=== PATIENT | female | born 1970 | race Hispanic/Latino ===

== ENCOUNTER 2024-08-20 14:03 | Emergency (ER) | payer BC ==
[~2024-08-20] VITALS: Ht 154.9 cm; Wt 68.0 kg
--- NOTE | 2024-08-20 14:34 | ERN ---
ED Note History of Present Illness Stated Complaint: SHORTNESS OF BREATH Chief Complaint: Shortness of Breath Time Seen by MD: 14:10 Dictation: Patient is a 54-year-old female who has a ventral hernia pending to be repaired she states. Today patient call EMS due to severe abdominal pain, states that it is associated with shortness of breaths. Patient said that she has not eating in the last for 5 days due to pain and nausea. Allergies: Coded Allergies: No Known Drug Allergies (Unverified Allergy, Unknown, 08/20/24) Past Medical History Past Medical History: Other Additional Past Medical Hx: BRONCHIOLITIS, ABD HERNIA, OBESE Surgical History: Other Surgical History Other: DIAPHRAM SURGERY, ABD HERNIA SX Review of System Dictation NEGATIVE EXCEPT PER HPI Constitutional: Negative for fever,chills, and weight loss Eyes: Negative for injury, pain,redness, and discharge ENT: Negative for injury,pain or swelling Cardiovascular: denies chest pain, palpitations, and edema Respiratory: Negative for shortness of breath, cough, and wheezing, Abdomen/GI: Abdominal pain. History of hernia. Back: Negative for injury and pain : Negative for injury, bleeding and discharge MS/Extremity: Negative for injury and deformity Skin: Negative for rash, and discoloration Neuro: Negative for headache, weakness, numbness, tingling, and seizure Psych: Negative for suicide ideation, homicidal ideation, and hallucinations Initial Vital Sign VS Vital Signs Date Time Temp Pulse Resp B/P (MAP) Pulse Ox O2 Delivery O2 Flow Rate FiO2 08/20/24 14:06 98.2 99 19 148/90 98 Room Air 0 08/20/24 15:05 21 Physical Exam Dictation General: awake, alert, NAD Head/Face: Normocephalic, atraumatic Eyes: PERRL, EOMI, vision at baseline ENT: oral cavity clear, TMs clear, no signs of infection Neck: Trachea midline, supple, no nuchal rigidity Cardiovascular: RRR, normal S1/S2, No MRGs, no JVD Respiratory: CTAB, no respiratory distress, No rales or wheezes Abdomen: Soft , no tender Skin: Warm, dry, normal turgor, no rash MS/Extremity: Pulses equal, no cyanosis, neurovascular intact, FROM Neuro: COAx4, GCS 15, strength 5/5, CN 2-12 intact, normal cerebellar exam, normal gait, Psych: Normal behavior, mood, and affect normal Results (Laboratory/Radiology) Laboratory/Radiology Laboratory Tests Test 08/20/24 15:19 White Blood Count 10.0 K/uL (4.8-10.8) Red Blood Count 2.35 MIL/uL (4.00-5.50) L Hemoglobin 7.6 g/dL (12.0-16.0) L Hematocrit 23.4 % (36-48) L Mean Corpuscular Volume 99.6 fL (79-99) H Mean Corpuscular Hemoglobin 32.3 pg (27.0-33.0) Mean Corpuscular Hemoglobin Concent 32.5 g/dL (32.0-36.0) Red Cell Distribution Width 25.2 % (11.0-15.5) H Platelet Count 200 K/uL (130-400) Mean Platelet Volume 10.0 fL (7.5-10.5) Immature Granulocyte % (Auto) 0.8 % (0-1) Neutrophils (%) (Auto) 76.1 % (40.0-77.0) Lymphocytes (%) (Auto) 12.6 % (21.0-51.0) L Monocytes (%) (Auto) 8.8 % (3.0-13.0) Eosinophils (%) (Auto) 1.1 % (0.0-8.0) Basophils (%) (Auto) 0.6 % (0.0-5.0) Neutrophils # (Auto) 7.6 K/uL (1.8-7.7) Lymphocytes # (Auto) 1.3 K/uL (1.0-4.8) Monocytes # (Auto) 0.9 K/uL (0.1-1.0) Eosinophils # (Auto) 0.11 K/uL (0.00-0.70) Basophils # (Auto) 0.06 K/uL (0.00-0.20) Absolute Immature Granulocyte (auto 0.08 K/uL (0-1) Nucleated Red Blood Cells 0.0 % (0.0-0.19) Red Blood Cell Morphology See comments Sodium Level 134 mmol/L (136-145) L Potassium Level 3.4 mmol/L (3.5-5.1) L Chloride Level 99 mmol/L (101-111) L Carbon Dioxide Level 28 mmol/L (21-32) Blood Urea Nitrogen 10 mg/dL (7-18) Creatinine 1.6 mg/dL (0.5-1.0) H Glomerular Filtration Rate Calc 38 mL/min (>90) Random Glucose 93 mg/dL (70-105) Total Calcium 8.3 mg/dL (8.5-10.1) L Amylase Level 38 U/L (25-115) Lipase 21 U/L (16-77) ED Course ED Course Orders Procedure Category Date Status Time Cbc With Differential LAB 08/20/24 Complete 14:18 Basic Metabolic Panel LAB 08/20/24 Complete 14:18 Amylase LAB 08/20/24 Complete 14:18 Ct Abdomen/Pelvis W/O CT 08/20/24 Resulted Contrast 14:18 Lipase LAB 08/20/24 Complete 14:18 Morphine 4mg Syg PHA 08/20/24 Complete (Morphine 4mg Syg) 14:30 Current Medications Medications (Trade) Dose Ordered Sig/Spencer Route PRN Reason Start Time Stop Time Status Last Admin Dose Admin Morphine Sulfate (morPHINE 4MG SYG) 4 mg ONCE ONCE IVP 08/20/24 14:30 08/20/24 14:31 DC 08/20/24 15:22 Vital Signs Date Time Temp Pulse Resp B/P (MAP) Pulse Ox O2 Delivery O2 Flow Rate FiO2 08/20/24 15:05 98.2 99 19 148/90 98 Room Air* 0 21 08/20/24 14:06 98.2 99 19 148/90 98 Room Air 0 Medical Decision Making MDM 54-year-old female with a large ventral hernia complaining of abdominal pain. Severe abdominal pain CBC, BNP, lipase amylase Order CT without contrast of abdomen. Morphine [address] abdomen IMPRESSION: Severe anterior abdominal wall rectus diastases includes several small to medium-sized fat and small as well as large bowel loop-containing hernias near the level of the umbilicus on the right greater than left without any significant surrounding inflammatory changes or free fluid. Hepatic steatosis. Patient has no leukocytosis no fever. Laboratory was within normal limits. Plan is to discharge patient home with the recommended to follow up with the primary care physician and referral to surgeon as outpatient. DX & DISP Disposition: Discharge Departure Impression: Primary Impression: Abdominal pain Additional Impressions: Ventral hernia without obstruction or gangrene, Small bowel fistula Condition: Stable Additional Instructions: RETURN TO ER FOR ANY ACUTE OR WORSENING SYMPTOMS. FOLLOW-UP IN 1-2 DAYS WITH PRIMARY PROVIDER FOR RECHECK OF TODAY'S SYMPTOMS. Time of Disposition: 16:35 PABLO RAMOS MD Aug 20, 2024 14:34
[2024-08-20] MEDS: morPHINE 4 MG SYG IVP ONE (15:22)
[2024-08-20 15:27] LABS: BASOPHILS # (AUTO) 0.06 K/uL (0.00-0.20); BASOPHILS % (AUTO) 0.6 % (0.0-5.0); EOSINOPHILS # (AUTO) 0.11 K/uL (0.00-0.70); EOSINOPHILS % (AUTO) 1.1 % (0.0-8.0); HEMATOCRIT 23.4 % (36-48); IMMATURE GRANULOCYTE ABSOLUTE 0.08 K/uL (0-1); LYMPHOCYTES # (AUTO) 1.3 K/uL (1.0-4.8); LYMPHOCYTES % (AUTO) 12.6 % (21.0-51.0); MEAN CORPUSCULAR HEMOGLOBIN 32.3 pg (27.0-33.0); MEAN CORPUSCULAR HGB CONC 32.5 g/dL (32.0-36.0); MEAN CORPUSCULAR VOLUME 99.6 fL (79-99); MONOCYTES # (AUTO) 0.9 K/uL (0.1-1.0); MONOCYTES % (AUTO) 8.8 % (3.0-13.0); NEUTROPHILS # (AUTO) 7.6 K/uL (1.8-7.7); NEUTROPHILS % (AUTO) 76.1 % (40.0-77.0); PLATELET COUNT (AUTO) 200 K/uL (130-400); RED BLOOD CELL COUNT(AUTO) 2.35 MIL/uL (4.00-5.50); RED CELL DISTRIBUTION WIDTH 25.2 % (11.0-15.5)
[2024-08-20 15:35] LABS: CREATININE 1.6 mg/dL (0.5-1.0); POTASSIUM 3.4 mmol/L (3.5-5.1)
--- NOTE | 2024-08-20 15:43 | HMCIMG ---
CT ABDOMEN WITHOUT CONTRAST. CT PELVIS WITHOUT CONTRAST. INDICATION: Abdominal pain; No other relevant information related to this study was provided in patient's history by the ordering service. TECHNIQUE: Routine transaxial imaging using 5 mm slice thickness through the abdomen and pelvis without the administration of IV contrast. Thin slice reconstructions are also provided. Coronal and sagittal reformatted images acquired for interpretation. CT was performed with one or more of the following dose reduction techniques: Automated exposure control, adjustment of the mA and/or kV according to patient size, or use of iterative reconstruction technique. COMPARISON: None FINDINGS: ON NONCONTRAST IMAGING: ABDOMEN: Heart size is normal. Visible lung bases are clear. Multiple chronic lateral right rib fracture deformities. No abnormal renal calcifications, hydronephrosis, perinephric inflammation, or proximal hydroureter detected. The liver is normal in size and smooth in contour without biliary duct dilation. Diffuse low attenuation of the liver parenchyma suggests fatty change. The spleen is normal in size and attenuation. The gallbladder is absent. 1.7 cm peripherally having calcific seroma within the gallbladder fossa. The pancreas appears normal without pancreatic duct dilation. The adrenal glands appear normal. No significant abdominal, retrocrural or retroperitoneal adenopathy noted. No evidence for intra-abdominal free air or organized fluid collection. No aortic aneurysmal dilation identified. Severe anterior abdominal wall rectus diastases includes several small to medium-sized fat and small as well as large bowel loop-containing hernias near the level of the umbilicus on the right greater than left without any significant surrounding inflammatory changes or free fluid. PELVIS: No abnormal calcifications within the urinary bladder or distal ureters. No evidence for free air or organized pelvic fluid collection. No significant pelvic adenopathy detected. Visualized small and large bowel loops appear unremarkable. Terminal ileum appears normal. The appendix is not well-visualized. Visible osseous structures are intact. IMPRESSION: Severe anterior abdominal wall rectus diastases includes several small to medium-sized fat and small as well as large bowel loop-containing hernias near the level of the umbilicus on the right greater than left without any significant surrounding inflammatory changes or free fluid. Hepatic steatosis.
[2024-08-20] MEDS: LACTATED RINGERS 1000ML 1,000 ML IV ONE (16:44)
--- NOTE | 2024-08-20 16:57 | NUR ---
D/C AFTER FLUIDS PER
[2024-08-20] MEDS ORDERED: ACET-66 PO (17:55)
[2024-08-20] MEDS ORDERED: KETO10 PO (17:55)
[2024-08-20] MEDS: acetaMINOPHEN WITH coDEINE 1 TAB TAB PO ONE (18:03)
[2024-08-20 18:18] VITALS: BP 105/50; PULSE 60; RESP 16; TEMP 98.3; O2SAT 98
== END 2024-08-20 18:37 | disposition home or self-care (01) ==
LOC: EDH 14:03
DX: K43.9 Ventral hernia without obstruction or gangrene (principal); K63.2 Fistula of intestine; Z98.890 Other specified postprocedural states
CPT/HCPCS: 99284; 74176; 96374; 82150; 80048; 83690; 85025; 36415; J7120; J2270